=== PATIENT | female | born 1985 | race Caucasian/White ===

== ENCOUNTER → 2017-04-09 | Outpatient (CLI) | payer MEDICARE, OTHER ==
--- NOTE | ~2017-04-09 | CR58 ---
[facility] A Service of [facility] & [facility] RADIOLOGY TEXT RESULTS PATIENT: KEITH REVELES LOCATION: [facility] : [birth year] UNIT #: [id number] AGE: [address]: Cathy Choudhary SEX: F ORDER DR: [id number] [address] [address] [id number] O MR#: [id number] Acc #: [id number] NAME: KEITH REVELES : 1985 SEX: F STUDY DATE/TIME: 04/09/2017 10:16 UNIT: [facility] ROOM: STUDY DESCRIPTION: CR Cervical Spine 2 or 3 Views Attending Physician: Cathy Choudhary A.P.R.N. Referring Physician: Cathy Choudhary A.P.R.N. Ordering Physician: Cathy Choudhary A.P.R.N. Primary Care Physician: Cathy Choudhary A.P.R.N. MEDICAL IMAGING REPORT This report is preliminary unless electronic signature is present. EXAM Cervical spine 04/09/2017 HISTORY 31-year-old female with neck pain past 2 months. Pain posterior aspect of the neck. COMPARISON None. FINDINGS AP and lateral cervical spine views include an open-mouth odontoid view as well. Cervical alignment and curvature are preserved. Vertebral body heights and disc spaces are maintained. Posterior elements and odontoid are intact. Prevertebral soft tissues are normal. IMPRESSION Normal cervical spine. Dictated by... Alexander Wiseman M.D. THIS IS AN ELECTRONICALLY VERIFIED REPORT Alexander Wiseman M.D. at 04/09/2017 3:17 PM MARCELO/ashlee TD: 04/09/2017 14:32 JOB #: [id number] MEDICAL IMAGING REPORT Page 1 of 1
== END | disposition home or self-care (01) ==
LOC: SRAD 10:08
DX: M54.2 Cervicalgia (principal)
CPT/HCPCS: 72040